=== PATIENT | female | born 1980 | race Caucasian/White ===

== ENCOUNTER 2022-01-25 16:05 | Emergency (ER) | payer BC ==
[~2022-01-25] VITALS: Ht 162.6 cm; Wt 62.0 kg
[2022-01-25 21:40] LABS: BASOPHILS % 0.5 % (0.0-2.0); EOSINOPHILS % 2.7 % (0.0-5.0); HEMATOCRIT. 38.3 % (36.0-48.0); HEMOGLOBIN. 12.7 g/dL (12.0-16.0); LYMPHOCYTES % 17.5 % (20.0-50.0); MEAN CORPUSCULAR HEMOGLOBIN 30.1 pg (28.0-32.0); MEAN CORPUSCULAR VOLUME 90.8 fL (81.0-99.0); MEAN PLATELET VOLUME 7.1 fl (7.4-10.4); MONOCYTES % 5.7 % (2.0-8.0); NEUTROPHILS % 73.6 % (40.0-76.0); PLATELET 406 x1000/uL (130-400); RED BLOOD CELL COUNT 4.21 mill/uL (4.2-5.4); RED CELL DISTRIBUTION WIDTH 14.1 % (11.6-14.6)
[2022-01-25 21:49] LABS: CHLORIDE 107 mEq/L (98-107)
[2022-01-25 21:58] LABS: B-HCG QUANTITATIVE 592 mIU/mL (<3)
[2022-01-25 22:18] VITALS: BP 120/82
[2022-01-25 23:46] LABS: CLARITY URINE CLOUDY (CLEAR); COLOR URINE RED (YELLOW); KETONES URINE NEGATIVE (NEGATIVE); LEUKOCYTE ESTERASE URINE 3+ (NEGATIVE); NITRITE URINE NEGATIVE (NEGATIVE); OCCULT BLOOD URINE 3+ (NEGATIVE); PROTEIN URINE 2+ (NEGATIVE); SPECIFIC GRAVITY URINE 1.011 (1.005-1.030); UROBILINOGEN URINE 0.2 E.U./dL (0.2-1.0)
[2022-01-25] MEDS ORDERED: CEPH250C2 MT (23:58)
== END 2022-01-26 00:16 | disposition home or self-care (01) ==
LOC: ER 16:05 → CANBEDREQ 01-26 02:35
DX: O46.91 Antepartum hemorrhage, unspecified, first trimester (principal); Z3A.01 Less than 8 weeks gestation of pregnancy
CPT/HCPCS: 36415; 76801; 80053; 81003; 81025; 84702; 85025; 86850; 86900; 99284